=== PATIENT | male | born 1990 | race Caucasian/White ===

== ENCOUNTER 2018-09-27 20:24 | Emergency (ER) | payer OTHER, SELFPAY ==
--- NOTE | 2018-09-27 21:13 | ER ---
Nurse's Notes [facility] Name: Nazario Pereira Age: 28 yrs Sex: Male : 1990 Arrival Date: 09/27/2018 Time: 20:26 Bed Waiting Private MD: Diagnosis: ED Course: 09/27 20:26 Patient arrived in ED. as 20:35 Patient's name was called from ER lobby. No response. aj1 20:50 Patient's name was called from ER lobby. No response. aj1 21:12 Patient's name was called from ER lobby. No response. Unable to locate patient. Will aj1 disposition as left without being seen by a provider. Administered Medications: No medications were administered Outcome: 21:12 Patient left the ED. aj1 Signatures: Lala Mosqueda, RN RN aj1 Rula Coleman as
== END 2018-09-27 21:12 | disposition left against medical advice (07) ==
LOC: ER 20:24
DX: Z53.21 Procedure and treatment not carried out due to patient leaving prior to being seen by health care provider (principal)